=== PATIENT | female | born 1970 | race Caucasian/White ===

== ENCOUNTER 2020-07-16 20:18 | Emergency (ER) | payer OTHER ==
[~2020-07-16 20:18] MED LIST: ADVIL100 MG PO; DOCUSATE SODIU250 MG PO; PERCOCET 5-3251 EACH PO; PHENERGAN 12.12.5 M1 PO; PRILOSEC OTC20 MG PO
[2020-07-17 00:48] LABS: HEMOGLOBIN 12.4 gm/dl (12.3-15.3); RED BLOOD COUNT 4.51 M/UL (4.00-5.10); WHITE BLOOD COUNT 9.9 K/UL (4.5-11.0)
[2020-07-17 01:11] LABS: BUN/CREATININE RATIO 22 (0-10)
[2020-07-17] MEDS ORDERED: VENTOLIN HFA 66.7 GM INH (01:46)
== END 2020-07-17 02:15 | disposition home or self-care (01) ==
LOC: ER1 20:18
PROVIDERS: Physician Assistant
DX: U07.1 COVID-19 (principal)
CPT/HCPCS: 0240U; 71046; 80053; 82550; 82553; 83605; 83874; 84484; 85025; 87040; 93005; 96374; 99285; J1100

== ENCOUNTER → 2020-09-06 | Outpatient (CLI) | payer OTHER ==
[~2020-09-06] MED LIST changes: +VENTOLIN HFA 66.7 GM INH
== END ==
LOC: KOH-I 09:22
DX: M79.671 Pain in right foot (principal)
CPT/HCPCS: 73610; 73630

== ENCOUNTER 2020-10-03 13:03 | Emergency (ER) | payer OTHER | END 2020-10-03 17:05 | disposition home or self-care (01) | LOC: ER1 13:03 | DX: S01.21XA Laceration without foreign body of nose, initial encounter (principal); Z87.891 Personal history of nicotine dependence; Z23 Encounter for immunization; W01.10XA Fall on same level from slipping, tripping and stumbling with subsequent striking against unspecified object, initial encounter; Y92.009 Unspecified place in unspecified non-institutional (private) residence as the place of occurrence of the external cause | CPT/HCPCS: 12011; 70486; 73590; 90471; 90715; 99284 ==

== ENCOUNTER → 2021-03-10 | Outpatient (CLI) | payer OTHER ==
[2021-03-10 09:48] LABS: HEMOGLOBIN 12.4 gm/dl (12.3-15.3); RED BLOOD COUNT 4.42 M/UL (4.00-5.10); WHITE BLOOD COUNT 7.7 K/UL (4.5-11.0)
[2021-03-10 10:14] LABS: BUN/CREATININE RATIO 16 (0-10)
== END ==
LOC: OPSV2 08:00
PROVIDERS: Podiatrist Foot & Ankle Surgery
DX: Z01.818 Encounter for other preprocedural examination (principal)
CPT/HCPCS: 80048; 85027; 93005

== ENCOUNTER → 2021-03-31 | Outpatient (CLI) | payer OTHER | LOC: EXRD 08:12 | DX: R06.02 Shortness of breath (principal); Z86.16 Personal history of COVID-19 | CPT/HCPCS: 71046 ==

== ENCOUNTER → 2021-05-17 | Outpatient (CLI) | payer OTHER | LOC: HEART 5 10:51 | DX: R06.02 Shortness of breath (principal); Z86.16 Personal history of COVID-19 | CPT/HCPCS: 94060; 94729 ==

== ENCOUNTER → 2021-06-29 | Outpatient (CLI) | payer OTHER ==
[~2021-06-29] MED LIST changes: +B-121000 MCG PO; +BEVESPI AEROS10.7 GM INH; +BLACK ELDERBERRY PO; +HYDROCHLOROTH12.5 MG PO; +OMEPRAZOLE20 MG PO; +ROPINIROLE HC0.25 MG PO; +VITAMIN D350 MC3 PO; +ZINC50 M1 PO
== END ==
LOC: ECHO 07:40
DX: Z01.810 Encounter for preprocedural cardiovascular examination (principal)
CPT/HCPCS: ECHO; 93306

== ENCOUNTER → 2021-06-29 | Outpatient (CLI) | payer OTHER ==
[2021-06-29 10:25] LABS: HEMOGLOBIN 12.3 gm/dl (12.3-15.3); RED BLOOD COUNT 4.65 M/UL (4.00-5.10); WHITE BLOOD COUNT 8.3 K/UL (4.5-11.0)
[2021-06-29 10:57] LABS: BUN/CREATININE RATIO 21 (0-10)
== END ==
LOC: OPSV2 07:49
PROVIDERS: Podiatrist Foot & Ankle Surgery
DX: Z01.812 Encounter for preprocedural laboratory examination (principal); M77.31 Calcaneal spur, right foot; M72.2 Plantar fascial fibromatosis
CPT/HCPCS: 36415; 80048; 85027

== ENCOUNTER → 2021-11-20 | Outpatient (CLI) | payer OTHER | LOC: KOH-I 10:19 | DX: M79.671 Pain in right foot (principal) | CPT/HCPCS: 73630 ==